=== PATIENT | male | born 1980 | race African-American/Black ===

== ENCOUNTER 2017-08-27 13:42 | Emergency (ER) | payer OTHER ==
[~2017-08-27] VITALS: Ht 172.7 cm; Wt 136.1 kg
[2017-08-27] MEDS ORDERED: AMLODIPINE BESYL5 MG ORAL (13:52)
[2017-08-27 14:00] VITALS: BP 149/97
--- NOTE | 2017-08-27 14:28 | Emergency Room Report ---
History of Present Illness General Chief Complaint: Eye Problems Source: Patient Present Illness HPI 36-year-old male no significant past medical history presenting with a one and half weeks of left eye blurry vision. Patient states he went to his primary care doctor who sent him to an auto parts clerk, but states he cannot get an appointment until early October. Denies any pain. States that he has some left-sided blurry vision, and sees a very bright spot. He even sees the spot when he closes his eyes. No morocho, n/v, or other neurological sx Allergies: Coded Allergies: No Known Allergies (Unverified , 08/27/17) Patient History Past Medical History: see triage record Past Surgical History: none Pertinent Family History: none Reviewed Nursing Documentation: PMH: Agreed, PSxH: Agreed Nursing Documentation-PMH Past Medical History: No History, Except For Hx Hypertension: Yes Review of Systems All Other Systems: negative except mentioned in HPI Physical Exam Vital Signs Date Time Temp Pulse Resp B/P (MAP) Pulse Ox O2 Delivery O2 Flow Rate FiO2 08/27/17 13:49 97.9 86 18 149/97 97 Room Air Sp02 EP Interpretation: reviewed, normal General Appearance: normal inspection, well appearing, no apparent distress, alert, GCS 15, non-toxic Head: normocephalic, atraumatic Eyes: bilateral eye PERRL, bilateral eye EOMI, bilateral eye other - visual acuity both eyes 20/20, R eye 20/20, L eye 20/60 ENT: normal ENT inspection, normal pharynx, normal voice, moist mucus membranes Neck: normal inspection, full range of motion, supple Respiratory: normal inspection, lungs clear, normal breath sounds, no respiratory distress, no retraction, no wheezing, speaking full sentences, chest symmetrical Cardiovascular #1: normal inspection, regular rate, rhythm, normal capillary refill Cardiovascular #2: 2+ radial (R), 2+ radial (L) Gastrointestinal: normal inspection, non tender, soft, non-distended, no guarding Musculoskeletal: normal inspection, back normal, normal range of motion, non- tender Neurologic: normal inspection, alert, oriented x3, responsive, motor strength/ tone normal, sensory intact, normal gait, speech normal Psychiatric: normal inspection, judgement/insight normal, memory normal Skin: normal inspection, normal color, no rash, warm/dry, well hydrated, normal turgor Medical Decision Making Diagnostic Impression: Primary Impression: Blurred vision, left eye ER Course 36-year-old male with left eye blurry vision for one and a half weeks DDX: Retinal detachment versus retinitis versus central retinal vein/artery occlusion Plan: Ophthalmology consult, ultrasound ER course: Ocular ultrasound performed by me, no retinal detachment and no abnormalities noted Spoke with Dr. Godoy the ophthalmologic, states that he can see the patient today in his office Disposition: Patient is to be discharged to home. Instructed to followup with Dr. Godoy in his office today, his address and phone number was given to patient Please note that this Emergency Department Report was dictated using [employer] substandard technology software, occasionally this can lead to erroneous entry secondary to interpretation by the dictation equipment Last Vital Signs Date Time Temp Pulse Resp B/P (MAP) Pulse Ox O2 Delivery O2 Flow Rate FiO2 08/27/17 13:49 97.9 86 18 149/97 97 Room Air Disposition: HOME, SELF-CARE Condition: Stable Dannielle Peraza M.D. Aug 27, 2017 14:28
[2017-08-27 14:37] VITALS: BP 149/97
== END 2017-08-27 14:37 | disposition home or self-care (01) ==
LOC: EMR 14:34
DX: H53.8 Other visual disturbances (principal); I10 Essential (primary) hypertension
CPT/HCPCS: 99283